=== PATIENT | female | born 1960 | race African-American/Black ===

== ENCOUNTER 2017-06-03 14:12 | Emergency (ER) | payer MEDICARE, MEDICAID ==
[~2017-06-03] VITALS: Ht 170.2 cm; Wt 109.0 kg
[2017-06-03 15:55] VITALS: BP 125/92
[2017-06-03] MEDS ORDERED: HYDROCODONE/ACETAMINOPHEN 5/325MG TABLET PO ONE (16:00)
[2017-06-03 16:17] LABS: BASOPHILS % 0.7 % (0.0-2.0); EOSINOPHILS % 1.4 % (0.0-5.0); HEMATOCRIT. 37.1 % (36.0-48.0); HEMOGLOBIN. 12.4 g/dL (12.0-16.0); LYMPHOCYTES % 35.6 % (20.0-50.0); MEAN CORPUSCULAR HEMOGLOBIN 26.9 pg (28.0-32.0); MEAN CORPUSCULAR VOLUME 80.4 fL (81.0-99.0); MEAN PLATELET VOLUME 7.2 fl (7.4-10.4); MONOCYTES % 6.7 % (2.0-8.0); NEUTROPHILS % 55.6 % (40.0-76.0); PLATELET 323 x1000/uL (130-400); RED BLOOD CELL COUNT 4.61 mill/uL (4.2-5.4); RED CELL DISTRIBUTION WIDTH 14.2 % (11.6-14.6)
[2017-06-03 16:23] LABS: CHLORIDE 103 mEq/L (98-107); PARTIAL THROMBOPLASTIN TIME 26.1 sec (23.4-31.0)
[2017-06-03 16:32] LABS: CARBON DIOXIDE 30 mEq/L (21-32)
[2017-06-03 16:39] LABS: TROPONIN I < 0.04 ng/mL (0.00-0.04)
[2017-06-03 16:57] LABS: *AMPHETAMINES SCREEN URINE NEGATIVE (NEGATIVE); *BARBITURATES SCREEN URINE NEGATIVE (NEGATIVE); *BENZODIAZEPINES SCREEN URINE PRESUMTIVE POSITIVE (NEGATIVE); *COCAINE SCREEN URINE NEGATIVE (NEGATIVE); CANNABINOID URINE SCREEN PRESUMTIVE POSITIVE (NEGATIVE); METHADONE URINE SCREEN NEGATIVE (NEGATIVE); OPIATES URINE SCREEN NEGATIVE (NEGATIVE); PHENCYCLIDINE URINE SCREEN NEGATIVE (NEGATIVE)
== END 2017-06-03 17:31 | disposition home or self-care (01) ==
LOC: ER 15:44
DX: R07.89 Other chest pain (principal); F12.10 Cannabis abuse, uncomplicated; I10 Essential (primary) hypertension; Z88.8 Allergy status to other drugs, medicaments and biological substances; W19.XXXA Unspecified fall, initial encounter; Y93.89 Activity, other specified; Y92.89 Other specified places as the place of occurrence of the external cause; Y99.8 Other external cause status
CPT/HCPCS: 36415; 71010; 80053; 80305; 83690; 84484; 85025; 85610; 85730; 93005; 99285

== ENCOUNTER 2018-02-06 15:12 | Emergency (ER) | payer MEDICARE, MEDICAID ==
[~2018-02-06] VITALS: Ht 170.2 cm; Wt 105.0 kg
[2018-02-06 21:35] LABS: CHLORIDE 103 mEq/L (98-107)
[2018-02-06 21:36] LABS: BASOPHILS % 0.3 % (0.0-2.0); EOSINOPHILS % 0.7 % (0.0-5.0); HEMATOCRIT. 41.5 % (36.0-48.0); HEMOGLOBIN. 14.2 g/dL (12.0-16.0); LYMPHOCYTES % 16.7 % (20.0-50.0); MEAN CORPUSCULAR HEMOGLOBIN 27.4 pg (28.0-32.0); MEAN PLATELET VOLUME 7.1 fl (7.4-10.4); MONOCYTES % 5.8 % (2.0-8.0); NEUTROPHILS % 76.5 % (40.0-76.0); PLATELET 362 x1000/uL (130-400); RED BLOOD CELL COUNT 5.19 mill/uL (4.2-5.4); RED CELL DISTRIBUTION WIDTH 14.7 % (11.6-14.6)
[2018-02-06] MEDS ORDERED: ACETAMINOPHEN 500MG TABLET PO ONE (22:15)
[2018-02-06 22:18] LABS: KETONES URINE NEGATIVE (NEGATIVE); LEUKOCYTE ESTERASE URINE NEGATIVE (NEGATIVE); NITRITE URINE NEGATIVE (NEGATIVE); OCCULT BLOOD URINE 1+ (NEGATIVE); PH URINE 6.5 (4.5-8.0); PROTEIN URINE NEGATIVE (NEGATIVE); SPECIFIC GRAVITY URINE 1.016 (1.005-1.030); UROBILINOGEN URINE 0.2 E.U./dL (0.2-1.0)
[2018-02-06 22:24] LABS: CLARITY URINE CLEAR (CLEAR); COLOR URINE YELLOW (YELLOW)
[2018-02-06 22:50] VITALS: BP 139/81
== END 2018-02-06 22:51 | disposition home or self-care (01) ==
LOC: ER 16:28
DX: K52.9 Noninfective gastroenteritis and colitis, unspecified (principal); M79.652 Pain in left thigh; M79.651 Pain in right thigh; F12.10 Cannabis abuse, uncomplicated; I10 Essential (primary) hypertension; Z88.6 Allergy status to analgesic agent; Z98.51 Tubal ligation status; Z87.828 Personal history of other (healed) physical injury and trauma
CPT/HCPCS: 36415; 80053; 81003; 85025; 99284

== ENCOUNTER 2018-10-13 11:06 | Emergency (ER) | payer MEDICARE, MEDICAID ==
[~2018-10-13] VITALS: Ht 170.2 cm; Wt 96.0 kg
[2018-10-13] MEDS ORDERED: MORPHINE SULFATE 10 MG/ML CPJ IM ONE (14:00)
[2018-10-13 15:34] VITALS: BP 149/87
== END 2018-10-13 15:43 | disposition home or self-care (01) ==
LOC: ER 11:06
DX: S40.012A Contusion of left shoulder, initial encounter (principal); I10 Essential (primary) hypertension; V43.52XA Car driver injured in collision with other type car in traffic accident, initial encounter; Y93.89 Activity, other specified; Y92.410 Unspecified street and highway as the place of occurrence of the external cause; Z88.6 Allergy status to analgesic agent; Z98.51 Tubal ligation status
CPT/HCPCS: 73030; 73060; 73070; 96372; 99283; J2270

== ENCOUNTER 2018-12-28 08:55 | Emergency (ER) | payer MEDICARE, MEDICAID ==
[~2018-12-28] VITALS: Ht 170.2 cm; Wt 103.0 kg
[2018-12-28] MEDS ORDERED: ONDANSETRON HCL 4MG/2ML INJ IV STA (09:56)
[2018-12-28] MEDS ORDERED: SODIUM CHLORIDE 0.9% 1,000 ML IV ONE (09:56)
[2018-12-28] MEDS ORDERED: FAMOTIDINE 20MG/2ML VIAL IV STA (09:56)
[2018-12-28 09:59] LABS: CLARITY URINE CLEAR (CLEAR); COLOR URINE YELLOW (YELLOW); KETONES URINE NEGATIVE (NEGATIVE); LEUKOCYTE ESTERASE URINE NEGATIVE (NEGATIVE); NITRITE URINE NEGATIVE (NEGATIVE); OCCULT BLOOD URINE 1+ (NEGATIVE); PROTEIN URINE NEGATIVE (NEGATIVE); SPECIFIC GRAVITY URINE 1.018 (1.005-1.030); UROBILINOGEN URINE 0.2 E.U./dL (0.2-1.0)
[2018-12-28 10:08] LABS: BASOPHILS % 0.6 % (0.0-2.0); EOSINOPHILS % 2.7 % (0.0-5.0); HEMOGLOBIN. 13.8 g/dL (12.0-16.0); LYMPHOCYTES % 41.1 % (20.0-50.0); MEAN CORPUSCULAR HEMOGLOBIN 27.2 pg (28.0-32.0); MEAN CORPUSCULAR VOLUME 80.5 fL (81.0-99.0); MEAN PLATELET VOLUME 6.9 fl (7.4-10.4); MONOCYTES % 6.6 % (2.0-8.0); PLATELET 306 x1000/uL (130-400); RED BLOOD CELL COUNT 5.09 mill/uL (4.2-5.4); RED CELL DISTRIBUTION WIDTH 14.5 % (11.6-14.6)
[2018-12-28 10:14] LABS: CHLORIDE 106 mEq/L (98-107)
[2018-12-28 10:16] LABS: PROTHROMBIN TIME 9.9 sec (9.1-11.1)
[2018-12-28 10:17] LABS: ETHANOL BLOOD < 10 mg/dL
[2018-12-28] MEDS ORDERED: MORPHINE SULFATE 4 MG/ML CPJ (NOT FOR IM USE) IV ONE (10:30)
[2018-12-28 13:13] VITALS: BP 184/105
[2018-12-29 06:22] LABS: *AMPHETAMINES SCREEN URINE NEGATIVE (NEGATIVE); *BARBITURATES SCREEN URINE NEGATIVE (NEGATIVE); *BENZODIAZEPINES SCREEN URINE PRESUMTIVE POSITIVE (NEGATIVE)
[2018-12-29 06:24] LABS: *COCAINE SCREEN URINE NEGATIVE (NEGATIVE); CANNABINOID URINE SCREEN PRESUMTIVE POSITIVE (NEGATIVE); METHADONE URINE SCREEN NEGATIVE (NEGATIVE); OPIATES URINE SCREEN PRESUMTIVE POSITIVE (NEGATIVE); PHENCYCLIDINE URINE SCREEN NEGATIVE (NEGATIVE)
== END 2018-12-28 14:06 | disposition home or self-care (01) ==
LOC: ER 08:55
DX: B37.3 Candidiasis of vulva and vagina (principal); R11.2 Nausea with vomiting, unspecified; E66.9 Obesity, unspecified; I10 Essential (primary) hypertension; F12.10 Cannabis abuse, uncomplicated; Z98.51 Tubal ligation status; Z88.6 Allergy status to analgesic agent
CPT/HCPCS: 36415; 76705; 80053; 80305; 80320; 81003; 83690; 85025; 85610; 96361; 96374; 96375; 99284; J2270; J2405; J3490; J7030; G0480

== ENCOUNTER 2019-01-04 14:17 | Emergency (ER) | payer MEDICARE, MEDICAID ==
[~2019-01-04] VITALS: Ht 170.2 cm; Wt 101.0 kg
[2019-01-04] MEDS ORDERED: KETOROLAC 30MG/ML VIAL IV STA (15:07)
[2019-01-04] MEDS ORDERED: SODIUM CHLORIDE 0.9% 1,000 ML IV ONE (15:07)
[2019-01-04 15:39] LABS: BASOPHILS % 0.5 % (0.0-2.0); EOSINOPHILS % 1.4 % (0.0-5.0); HEMATOCRIT. 39.7 % (36.0-48.0); HEMOGLOBIN. 13.4 g/dL (12.0-16.0); LYMPHOCYTES % 39.4 % (20.0-50.0); MEAN CORPUSCULAR HEMOGLOBIN 27.2 pg (28.0-32.0); MEAN CORPUSCULAR VOLUME 80.6 fL (81.0-99.0); MEAN PLATELET VOLUME 6.8 fl (7.4-10.4); MONOCYTES % 5.2 % (2.0-8.0); NEUTROPHILS % 53.5 % (40.0-76.0); PLATELET 331 x1000/uL (130-400); RED BLOOD CELL COUNT 4.92 mill/uL (4.2-5.4); RED CELL DISTRIBUTION WIDTH 14.6 % (11.6-14.6)
[2019-01-04 15:44] LABS: CHLORIDE 105 mEq/L (98-107)
[2019-01-04 15:48] LABS: ETHANOL BLOOD < 10 mg/dL
[2019-01-04] MEDS ORDERED: MAGNESIUM/ALUMINUM HYDROXIDE/SIMETHICONE 30ML UDC PO ONE (17:45)
[2019-01-04] MEDS ORDERED: HYDROCODONE/ACETAMINOPHEN 5/325MG TABLET PO ONE (17:45)
[2019-01-04 18:15] VITALS: BP 132/76
== END 2019-01-04 18:20 | disposition home or self-care (01) ==
LOC: ER 14:17
DX: R10.33 Periumbilical pain (principal); I10 Essential (primary) hypertension; F12.10 Cannabis abuse, uncomplicated; Z98.51 Tubal ligation status; Z96.659 Presence of unspecified artificial knee joint; Z88.6 Allergy status to analgesic agent
CPT/HCPCS: 36415; 74176; 80053; 80320; 83690; 85025; 96374; 99284; J1885; J7030; G0480

== ENCOUNTER 2021-05-13 14:18 | Emergency (ER) | payer MEDICARE, MEDICAID ==
[~2021-05-13] VITALS: Ht 170.2 cm; Wt 86.0 kg
[2021-05-13 14:45] VITALS: BP 109/76
[2021-05-13] MEDS ORDERED: ACETAMINOPHEN WITH CODEINE 300/30MG TABLET PO ONE (16:45)
[2021-05-13] MEDS ORDERED: HYDROCODONE/ACETAMINOPHEN 5/325MG TABLET PO ONE (17:15)
== END 2021-05-13 18:30 | disposition home or self-care (01) ==
LOC: ER 14:18
DX: S49.82XA Other specified injuries of left shoulder and upper arm, initial encounter (principal); R03.0 Elevated blood-pressure reading, without diagnosis of hypertension; V49.49XA Driver injured in collision with other motor vehicles in traffic accident, initial encounter; Y93.89 Activity, other specified; Y92.488 Other paved roadways as the place of occurrence of the external cause
CPT/HCPCS: 73030; 73060; 99284; A4565

== ENCOUNTER 2021-05-30 15:31 | Emergency (ER) | payer MEDICARE, MEDICAID ==
[~2021-05-30] VITALS: Ht 170.2 cm; Wt 87.0 kg
[2021-05-30] MEDS ORDERED: FAMOTIDINE 20MG/2ML VIAL IV STA (17:31)
[2021-05-30] MEDS ORDERED: ONDANSETRON HCL 4MG/2ML INJ IV STA (17:31)
[2021-05-30] MEDS ORDERED: SODIUM CHLORIDE 0.9% 1,000 ML IV ONE (17:45)
[2021-05-30 17:56] LABS: BASOPHILS % 0.4 % (0.0-2.0); CLARITY URINE CLEAR (CLEAR); COLOR URINE YELLOW (YELLOW); HEMATOCRIT. 39.5 % (36.0-48.0); HEMOGLOBIN. 13.2 g/dL (12.0-16.0); KETONES URINE NEGATIVE (NEGATIVE); LEUKOCYTE ESTERASE URINE TRACE (NEGATIVE); LYMPHOCYTES % 32.4 % (20.0-50.0); MEAN CORPUSCULAR HEMOGLOBIN 27.2 pg (28.0-32.0); MEAN CORPUSCULAR VOLUME 81.1 fL (81.0-99.0); MEAN PLATELET VOLUME 6.4 fl (7.4-10.4); MONOCYTES % 5.9 % (2.0-8.0); NEUTROPHILS % 60.3 % (40.0-76.0); NITRITE URINE NEGATIVE (NEGATIVE); OCCULT BLOOD URINE 1+ (NEGATIVE); PLATELET 357 x1000/uL (130-400); PROTEIN URINE NEGATIVE (NEGATIVE); RED BLOOD CELL COUNT 4.87 mill/uL (4.2-5.4); RED CELL DISTRIBUTION WIDTH 14.3 % (11.6-14.6); SPECIFIC GRAVITY URINE 1.016 (1.005-1.030); UROBILINOGEN URINE 0.2 E.U./dL (0.2-1.0)
[2021-05-30 17:58] LABS: CHLORIDE 106 mEq/L (98-107)
[2021-05-30] MEDS ORDERED: ONDANSETRON HCL 4MG/2ML INJ IV ONE (18:45)
[2021-05-30] MEDS ORDERED: ONDA4TAB5 MT (19:21)
[2021-05-30] MEDS ORDERED: FAMO-135 MT (19:21)
[2021-05-30 20:55] VITALS: BP 143/90
== END 2021-05-30 20:56 | disposition home or self-care (01) ==
LOC: ER 15:31
DX: K29.70 Gastritis, unspecified, without bleeding (principal); R11.2 Nausea with vomiting, unspecified; F12.10 Cannabis abuse, uncomplicated; I10 Essential (primary) hypertension; Z88.6 Allergy status to analgesic agent
CPT/HCPCS: 36415; 74176; 76705; 80053; 81003; 81025; 83690; 85025; 96361; 96374; 96375; 96376; 99285; J2405; J3490; J7030

== ENCOUNTER 2021-08-10 11:41 | Emergency (ER) | payer MEDICARE, MEDICAID ==
[~2021-08-10] VITALS: Ht 170.2 cm; Wt 91.0 kg
[~2021-08-10 11:41] MED LIST: FAMO-135 MT; ONDA4TAB5 MT
[2021-08-10 13:36] LABS: BASOPHILS % 0.3 % (0.0-2.0); EOSINOPHILS % 0.3 % (0.0-5.0); HEMATOCRIT. 42.8 % (36.0-48.0); HEMOGLOBIN. 14.7 g/dL (12.0-16.0); LYMPHOCYTES % 29.2 % (20.0-50.0); MEAN CORPUSCULAR HEMOGLOBIN 27.9 pg (28.0-32.0); MEAN CORPUSCULAR VOLUME 81.4 fL (81.0-99.0); MEAN PLATELET VOLUME 6.4 fl (7.4-10.4); MONOCYTES % 7.4 % (2.0-8.0); NEUTROPHILS % 62.8 % (40.0-76.0); PLATELET 369 x1000/uL (130-400); RED BLOOD CELL COUNT 5.25 mill/uL (4.2-5.4); RED CELL DISTRIBUTION WIDTH 14.7 % (11.6-14.6)
[2021-08-10 13:42] LABS: CHLORIDE 105 mEq/L (98-107)
[2021-08-10] MEDS ORDERED: ACETAMINOPHEN 325MG TABLET PO ONE (18:00)
[2021-08-10] MEDS ORDERED: ONDANSETRON 4MG ODT PO ONE (18:15)
[2021-08-10 19:06] LABS: CLARITY URINE CLEAR (CLEAR); COLOR URINE YELLOW (YELLOW); KETONES URINE TRACE (NEGATIVE); LEUKOCYTE ESTERASE URINE 2+ (NEGATIVE); NITRITE URINE NEGATIVE (NEGATIVE); OCCULT BLOOD URINE 1+ (NEGATIVE); PROTEIN URINE TRACE (NEGATIVE); SPECIFIC GRAVITY URINE 1.019 (1.005-1.030)
[2021-08-10] MEDS ORDERED: HYDROCODONE/ACETAMINOPHEN 5/325MG TABLET PO PRN (20:00)
[2021-08-10] MEDS ORDERED: LEVOFLOXACIN 250MG TABLET PO ONE (20:00)
[2021-08-10] MEDS ORDERED: ONDA4TAB5 MT (20:08)
[2021-08-10] MEDS ORDERED: LEVO750T46 MT (20:08)
[2021-08-10 20:31] VITALS: BP 143/68
== END 2021-08-10 20:33 | disposition home or self-care (01) ==
LOC: ER 11:41
DX: J34.89 Other specified disorders of nose and nasal sinuses (principal); R11.0 Nausea; I10 Essential (primary) hypertension; F12.10 Cannabis abuse, uncomplicated
CPT/HCPCS: 36415; 80053; 81003; 85025; 93005; 99284; Q0162

== ENCOUNTER 2021-08-15 20:49 | Emergency (ER) | payer MEDICARE, MEDICAID ==
[~2021-08-15] VITALS: Ht 170.2 cm; Wt 91.0 kg
[~2021-08-15 20:49] MED LIST changes: +LEVO750T46 MT
[2021-08-15] MEDS ORDERED: TRAMADOL 50MG TABLET PO ONE (21:45)
[2021-08-15] MEDS ORDERED: ONDANSETRON 4MG ODT PO ONE (21:45)
[2021-08-15] MEDS ORDERED: FAMOTIDINE 20MG TABLET PO ONE (21:45)
[2021-08-15 22:42] LABS: CLARITY URINE CLOUDY (CLEAR); COLOR URINE YELLOW (YELLOW); KETONES URINE TRACE (NEGATIVE); LEUKOCYTE ESTERASE URINE 2+ (NEGATIVE); NITRITE URINE NEGATIVE (NEGATIVE); OCCULT BLOOD URINE 2+ (NEGATIVE); PH URINE 5.5 (4.5-8.0); PROTEIN URINE TRACE (NEGATIVE); SPECIFIC GRAVITY URINE 1.021 (1.005-1.030); UROBILINOGEN URINE 0.2 E.U./dL (0.2-1.0)
[2021-08-15] MEDS ORDERED: HYDROCODONE/ACETAMINOPHEN 10/325MG TABLET PO ONE (23:15)
[2021-08-15] MEDS ORDERED: ONDA4TAB11 PO (23:20)
[2021-08-15] MEDS ORDERED: NITR100C MT (23:20)
[2021-08-15] MEDS ORDERED: IBUP-2437 MT (23:20)
[2021-08-15 23:32] VITALS: BP 136/88
== END 2021-08-15 23:45 | disposition home or self-care (01) ==
LOC: ER 20:49
DX: N39.0 Urinary tract infection, site not specified (principal); M79.18 Myalgia, other site; M54.50 Low back pain, unspecified; R11.2 Nausea with vomiting, unspecified; I10 Essential (primary) hypertension; Z79.899 Other long term (current) drug therapy
CPT/HCPCS: 81003; 99284; Q0162

== ENCOUNTER 2021-12-29 16:52 | Emergency (ER) | payer MEDICARE, MEDICAID ==
[~2021-12-29] VITALS: Ht 170.2 cm; Wt 82.0 kg
[~2021-12-29 16:52] MED LIST changes: +IBUP-2437 MT; +NITR100C MT; +ONDA4TAB11 PO
[2021-12-29] MEDS ORDERED: ONDANSETRON HCL 4MG/2ML INJ IV ONE (17:15)
[2021-12-29] MEDS ORDERED: FAMOTIDINE 20MG/2ML VIAL IV ONE (17:15)
[2021-12-29] MEDS ORDERED: SODIUM CHLORIDE 0.9% 1,000 ML IV ONE ×2 (17:15→18:15)
[2021-12-29] MEDS ORDERED: MORPHINE SULFATE 4 MG/ML CPJ (NOT FOR IM USE) IV ONE (17:15)
[2021-12-29 17:45] LABS: HEMATOCRIT. 43.6 % (36.0-48.0); HEMOGLOBIN. 14.7 g/dL (12.0-16.0); MEAN CORPUSCULAR VOLUME 80.2 fL (81.0-99.0); MEAN PLATELET VOLUME 6.7 fl (7.4-10.4); PLATELET 346 x1000/uL (130-400); RED BLOOD CELL COUNT 5.43 mill/uL (4.2-5.4)
[2021-12-29 17:55] LABS: CHLORIDE 106 mEq/L (98-107)
[2021-12-29 17:57] LABS: PARTIAL THROMBOPLASTIN TIME 27.7 sec (23.4-31.0); PROTHROMBIN TIME 11.1 sec (9.6-11.0)
[2021-12-29 18:01] LABS: PHOSPHORUS 2.1 mg/dL (2.5-4.9)
[2021-12-29 18:13] LABS: PLATELET ESTIMATE NORMAL
[2021-12-29] MEDS ORDERED: METOCLOPRAMIDE HCL 10MG/2ML VIAL IV ONE (18:15)
[2021-12-29] MEDS ORDERED: PROCHLORPERAZINE 10MG/2ML VIAL IV ONE (18:15)
[2021-12-29] MEDS ORDERED: KETOROLAC 30MG/ML VIAL IV ONE (18:15)
[2021-12-29 19:58] LABS: CLARITY URINE TURBID (CLEAR); COLOR URINE DARK YELLOW (YELLOW); KETONES URINE 1+ (NEGATIVE); LEUKOCYTE ESTERASE URINE NEGATIVE (NEGATIVE); NITRITE URINE NEGATIVE (NEGATIVE); OCCULT BLOOD URINE 2+ (NEGATIVE); PROTEIN URINE 1+ (NEGATIVE); SPECIFIC GRAVITY URINE 1.025 (1.005-1.030)
[2021-12-29 20:14] LABS: *AMPHETAMINES SCREEN URINE NEGATIVE (NEGATIVE); *BARBITURATES SCREEN URINE NEGATIVE (NEGATIVE); *BENZODIAZEPINES SCREEN URINE PRESUMTIVE POSITIVE (NEGATIVE); *COCAINE SCREEN URINE NEGATIVE (NEGATIVE); METHADONE URINE SCREEN NEGATIVE (NEGATIVE); OPIATES URINE SCREEN PRESUMTIVE POSITIVE (NEGATIVE)
[2021-12-29 20:16] LABS: CANNABINOID URINE SCREEN PRESUMTIVE POSITIVE (NEGATIVE); PHENCYCLIDINE URINE SCREEN NEGATIVE (NEGATIVE)
[2021-12-29] MEDS ORDERED: CEFTRIAXONE 1 G PREMIX 50 ML IV ONE (21:00)
[2021-12-29] MEDS ORDERED: ACETAMINOPHEN 325MG TABLET PO ONE (21:15)
[2021-12-29] MEDS ORDERED: CEFP200T13 MT (22:40)
[2021-12-29 23:11] VITALS: BP 135/86
== END 2021-12-29 23:12 | disposition home or self-care (01) ==
LOC: ER 16:52
DX: N39.0 Urinary tract infection, site not specified (principal); K85.90 Acute pancreatitis without necrosis or infection, unspecified; F12.10 Cannabis abuse, uncomplicated; I10 Essential (primary) hypertension; R19.7 Diarrhea, unspecified; R11.2 Nausea with vomiting, unspecified; Z87.19 Personal history of other diseases of the digestive system; Z98.890 Other specified postprocedural states; Z87.891 Personal history of nicotine dependence
CPT/HCPCS: 36415; 71045; 76700; 80053; 80305; 81003; 83690; 83735; 83880; 84100; 84484; 85025; 85610; 85730; 93005; 96361; 96365; 96375; 99285; J0696; J0780; J1885; J2270; J2405; J2765; J3490; J7030

== ENCOUNTER 2024-04-27 11:51 | Emergency (ER) | payer MEDICARE, MEDICAID ==
[~2024-04-27] VITALS: Ht 167.6 cm; Wt 99.0 kg
[~2024-04-27 11:51] MED LIST changes: +CEFP200T13 MT; -LEVO750T46 MT; +LEVO750T68 MT
[2024-04-27 12:00] VITALS: BP 144/90; PULSE 82; RESP 18; TEMP 97.8; O2SAT 98
[2024-04-27 12:22] LABS: BASOPHILS % 0.4 % (0.0-2.0); HEMATOCRIT. 43.2 % (36.0-48.0); LYMPHOCYTES % 32.5 % (20.0-50.0); MEAN CORPUSCULAR HEMOGLOBIN 26.9 pg (28.0-32.0); MEAN CORPUSCULAR HGB CONC 32.5 g/dL (31.0-37.0); MEAN CORPUSCULAR VOLUME 82.8 fL (81.0-99.0); MONOCYTES % 8.6 % (2.0-8.0); NEUTROPHILS % 56.5 % (40.0-76.0); PLATELET 408 x1000/uL (130-400); RED BLOOD CELL COUNT 5.22 mill/uL (4.2-5.4); RED CELL DISTRIBUTION WIDTH 14.6 % (11.6-14.6); WHITE BLOOD COUNT 10.2 x1000/uL (4.5-11.0)
[2024-04-27 12:51] LABS: CLARITY URINE CLEAR (CLEAR); COLOR URINE DARK YELLOW (YELLOW); GLUCOSE URINE NEGATIVE (NEGATIVE); KETONES URINE TRACE (NEGATIVE); LEUKOCYTE ESTERASE URINE NEGATIVE (NEGATIVE); NITRITE URINE NEGATIVE (NEGATIVE); OCCULT BLOOD URINE NEGATIVE (NEGATIVE); PROTEIN URINE NEGATIVE (NEGATIVE); SPECIFIC GRAVITY URINE 1.032 (1.005-1.030)
[2024-04-27 13:03] LABS: CHLORIDE 104 mEq/L (98-107)
[2024-04-27 13:04] LABS: CARBON DIOXIDE 27 mEq/L (21-32); POTASSIUM 4.7 mEq/L (3.5-5.1); SODIUM 137 mEq/L (136-145)
[2024-04-27 13:05] LABS: CALCIUM 9.8 mg/dL (8.7-10.4)
[2024-04-27 13:09] LABS: CREATININE 1.3 mg/dL (0.6-1.0); GLUCOSE 128 mg/dL (70-105)
[2024-04-27 13:10] LABS: UREA NITROGEN BLOOD 16 mg/dL (9-23)
[2024-04-27 13:11] LABS: ALANINE AMINOTRANSFERASE 9 IU/L (10-49); ALBUMIN 4.7 g/dL (3.2-4.8); ASPARTATE AMINOTRANSFERASE 22 IU/L (<34)
[2024-04-27 13:12] LABS: BILIRUBIN TOTAL 0.4 mg/dL (0.1-1.0)
[2024-04-27 13:16] LABS: BILIRUBIN DIRECT < 0.1 mg/dL (<=3.0)
[2024-04-27] MEDS ORDERED: IBUP-2028 MT (15:46)
[2024-04-27] MEDS ORDERED: METH-653 MT (15:46)
[2024-04-27] MEDS ORDERED: LIDO1ADH23 TP (15:47)
== END 2024-04-27 16:49 | disposition home or self-care (01) ==
LOC: ER 11:51
DX: M54.16 Radiculopathy, lumbar region (principal); M51.36 Other intervertebral disc degeneration, lumbar region; I10 Essential (primary) hypertension; F12.90 Cannabis use, unspecified, uncomplicated; Z98.890 Other specified postprocedural states
CPT/HCPCS: 36415; 74176; 80048; 80076; 81003; 85025; 86850; 86900; 99284

== ENCOUNTER 2024-06-26 09:38 | Emergency (ER) | payer MEDICARE, MEDICAID ==
[~2024-06-26] VITALS: Ht 170.2 cm; Wt 109.0 kg
[~2024-06-26 09:38] MED LIST changes: +IBUP-2028 MT; +LIDO1ADH23 TP; +METH-653 MT; +ONDA-239 PO; -ONDA4TAB11 PO
[2024-06-26 10:09] VITALS: O2SAT 99
[2024-06-26] MEDS: KETOROLAC 30MG/ML VIAL IM ONE (10:49)
[2024-06-26] MEDS: METHOCARBAMOL 500MG TABLET PO ONE (10:50)
[2024-06-26] MEDS ORDERED: IBUP-2029 MT (11:24)
[2024-06-26] MEDS ORDERED: METH-653 MT (11:24)
[2024-06-26 11:35] VITALS: BP 119/76; PULSE 71; RESP 18; TEMP 36.83628; O2SAT 99
== END 2024-06-26 11:54 | disposition home or self-care (01) ==
LOC: ER 09:57
DX: M54.30 Sciatica, unspecified side (principal); I10 Essential (primary) hypertension; Z98.890 Other specified postprocedural states; Z79.899 Other long term (current) drug therapy
CPT/HCPCS: 99283; 72100; 96372; J1885